=== PATIENT | female | born 1980 | race Caucasian/White ===

== ENCOUNTER 2019-04-07 08:42 | Emergency (ER) | payer OTHER ==
[2019-04-07 09:06] VITALS: BP 181/112; PULSE 73
[2019-04-07] MEDS ORDERED: Lidocaine 1% 10 ML MDV INJECT ONE (09:27)
--- NOTE | 2019-04-07 09:56 | EDM.PDOC ---
ED HPI GENERAL MEDICAL PROBLEM - General Chief Complaint: Laceration Stated Complaint: R PINKY FINGER LAC Time Seen by Provider: 04/07/19 09:30 Source of Information: Reports: Patient - History of Present Illness INITIAL COMMENTS - FREE TEXT/NARRATIVE: 38 year old female cut R small finger with a knife cutting a box at work. UTD with tetanus. No weakness of difficulty with finger flexion. Left Finger-Little Pain Score (Numeric/FACES): 3 - Related Data Allergies Allergy/AdvReac Type Severity Reaction Status Date / Time allopurinol Allergy Fever Verified 04/07/19 09:02 Home Meds: Home Meds . 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: fatty tissue to left breast Psychiatric History: Reports: Anxiety Endocrine/Metabolic History: Reports: Hypothyroidism - Past Surgical History GI Surgical History: Reports: Cholecystectomy Social & Family History - Tobacco Use Smoking Status *Q: Never Smoker - Caffeine Use Caffeine Use: Reports: Energy Drinks, Soda - Recreational Drug Use Recreational Drug Use: No ED ROS GENERAL - Review of Systems Review Of Systems: See Below Constitutional: Reports: No Symptoms HEENT: Reports: No Symptoms Respiratory: Reports: No Symptoms Cardiovascular: Reports: No Symptoms Musculoskeletal: Reports: Other (finger lac R small finger) Neurological: Denies: Numbness, Tingling, Weakness ED EXAM, SKIN/RASH Exam: See Below General Appearance: Alert, No Apparent Distress Respiratory/Chest: No Respiratory Distress Extremities: Other (1.5 cm lac volar aspect ) Neurological: No Motor/Sensory Deficits Skin: Warm, Dry, Normal Color ED SKIN PROCEDURES - Laceration/Wound Repair Right Anterior Digit - 5th (Baby) Appearance: Linear Distal NVT: Neuro & Vascular Intact Local Anesthesia - Lidocaine (Xylocaine): 1% Plain Skin Prep: Saline Suture Size: 3-0 # of Sutures: 5 Suture Type: Nylon Course - Vital Signs Last Recorded V/S: Last Vital Signs Temp 97.4 F 04/07/19 09:03 Pulse 73 04/07/19 09:03 Resp 18 04/07/19 09:03 BP 181/112 H 04/07/19 09:03 Pulse Ox 98 04/07/19 09:03 - Orders/Labs/Meds Meds: Medications Discontinued Medications Generic Name Dose Route Start Last Admin Trade Name Drake PRN Reason Stop Dose Admin Lidocaine HCl 10 ml 04/07/19 09:27 Xylocaine 1% INJECT 04/07/19 09:28 ONETIME ONE Departure - Departure Time of Disposition: 09:56 Disposition: Home, Self-Care 01 Condition: Fair Clinical Impression: Finger laceration Qualifiers: Encounter type: initial encounter Finger: little finger Damage to nail status: without damage Foreign body presence: without foreign body Laterality: right Qualified Code(s): S61.216A - Laceration without foreign body of right little finger without damage to nail, initial encounter - Discharge Information Referrals: PCP,None [Primary Care Provider] - Additional Instructions: laceration care instr. Stitches out in about 10 days. Call our [facility] medical clinic at [phone] for appointment to have that done.
== END 2019-04-07 10:10 | disposition home or self-care (01) ==
LOC: JD.ED 08:42
DX: S61.216A Laceration without foreign body of right little finger without damage to nail, initial encounter (principal); Z88.8 Allergy status to other drugs, medicaments and biological substances; W26.0XXA Contact with knife, initial encounter; Y99.0 Civilian activity done for income or pay
CPT/HCPCS: 12001; 99282; J2001

== ENCOUNTER 2019-05-12 08:06 | Emergency (ER) | payer OTHER ==
[2019-05-12 08:18] VITALS: PULSE 68
[2019-05-12] MEDS ORDERED: LORazepam 0.5 MG Tab PO ONE (08:30)
--- NOTE | 2019-05-12 09:26 | EDM.PDOCBH ---
<Laura Preston - Last Filed: 05/12/19 09:33> ED HPI GENERAL MEDICAL PROBLEM - General Chief Complaint: Behavioral/Psych Stated Complaint: RACING HEART RATE AND CHEST TIGHTNESS Time Seen by Provider: 05/12/19 08:16 Source of Information: Reports: Patient History Limitations: Reports: No Limitations - History of Present Illness INITIAL COMMENTS - FREE TEXT/NARRATIVE: 38 year old female presents to the ED with complaints of palpitations for the past 3 days. Pt reports that these come on intermittently, more frequently in her sleep and wakes her up. She reports a history of palpitations and states that this happens when she does not take her thyroid mediation. She admits that she has not taken her thyroid medication in over two years as she has not had health insurance. Pt also admits to increased anxiety. She states that she is working two jobs and has been for quite some time and is just exhausted. Pt is tearful over how exhausted she is. She states that she has had a headache for the past 7 days, and that she has not been able to make it go away. 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 Denies: Shortness of Breath, Cough Cardiovascular: Reports: Palpitations. Denies: Chest Pain, Blood Pressure Problem, Dyspnea on Exertion, Lightheadedness, Syncope Endocrine: Reports: Fatigue GI/Abdominal: Reports: No Symptoms. Denies: Abdominal Pain, Constipation, Diarrhea : Reports: No Symptoms Musculoskeletal: Reports: No Symptoms Skin: Reports: No Symptoms Neurological: Reports: Headache. Denies: Dizziness, Numbness, Syncope Psychiatric: Reports: Anxiety Hematologic/Lymphatic: Reports: No Symptoms Immunologic: Reports: No Symptoms ED EXAM, BEHAVIORAL HEALTH - Physical Exam Exam: See Below Exam Limited By: No Limitations General Appearance: Alert, WD/WN, Anxious, Other (tearful) Eye Exam: Bilateral Eye: PERRL Ears: Normal External Exam, Hearing Grossly Normal Nose: Normal Inspection Throat/Mouth: Normal Inspection, Normal Lips, Normal Voice, No Airway Compromise Head: Atraumatic, Normocephalic Neck: Normal Inspection, Supple, Non-Tender Respiratory/Chest: No Respiratory Distress, Lungs Clear, Chest Non-Tender Cardiovascular: Normal Peripheral Pulses, Regular Rate, Rhythm, No Edema, No Murmur GI/Abdominal: Normal Bowel Sounds, Soft, Non-Tender (Female) Exam: Deferred Rectal (Female) Exam: Deferred Back Exam: Normal Inspection, Full Range of Motion Extremities: Normal Inspection, Normal Range of Motion, No Pedal Edema Neurological: Alert, Normal Cognition, No Motor/Sensory Deficits, Oriented x 3 Psychiatric: Alert, Normal Cognition, Oriented, Tearful Skin Exam: Warm, Dry, Intact, Normal color, No rash COURSE, BEHAVIORAL HEALTH COMP - Course Vital Signs: Last Vital Signs Temp 97.4 F 05/12/19 08:15 Pulse 68 05/12/19 08:15 Resp 16 05/12/19 08:15 BP Pulse Ox 100 05/12/19 08:15 Orders, Labs, Meds: Active Orders 24 hr Category Date Time Status EKG 12 Lead [EKG Documentation Completion] [RC] STAT Care 05/12/19 08:30 Active Laboratory Tests 05/12/19 05/12/19 Range/Units 08:58 08:58 WBC 7.96 (3.98-10.04) K/mm3 RBC 4.82 (3.98-5.22) M/mm3 Hgb 12.6 (11.2-15.7) gm/dl Hct 38.6 (34.1-44.9) % MCV 80.1 (79.4-94.8) fl MCH 26.1 (25.6-32.2) pg MCHC 32.6 (32.2-35.5) g/dl RDW Std Deviation 48.4 H (36.4-46.3) fL Plt Count 417 H D (182-369) K/mm3 MPV 8.6 L (9.4-12.3) fl Neut % (Auto) 58.3 (34.0-71.1) % Lymph % (Auto) 26.8 (19.3-51.7) % [place] % (Auto) 8.8 (4.7-12.5) % Eos % (Auto) 4.9 (0.7-5.8) Baso % (Auto) 0.9 (0.1-1.2) % Neut # (Auto) 4.65 (1.56-6.13) K/mm3 Lymph # (Auto) 2.13 (1.18-3.74) K/mm3 [place] # (Auto) 0.70 H (0.24-0.36) K/mm3 Eos # (Auto) 0.39 H (0.04-0.36) K/mm3 Baso # (Auto) 0.07 (0.01-0.08) K/mm3 Sodium 142 (136-145) mEq/L Potassium 3.8 (3.5-5.1) mEq/L Chloride 107 (98-107) mEq/L Carbon Dioxide 28 (21-32) mEq/L Anion Gap 10.8 (5-15) BUN 13 (7-18) mg/dL Creatinine 1.0 (0.55-1.02) mg/dL Est Cr Clr Drug Dosing 64.58 mL/min Estimated GFR (MDRD) > 60 (>60) mL/min BUN/Creatinine Ratio 13.0 L (14-18) Glucose 95 (74-106) mg/dL Calcium 8.7 (8.5-10.1) mg/dL Total Bilirubin 0.4 (0.2-1.0) mg/dL AST 13 L (15-37) U/L ALT 24 (14-59) U/L Alkaline Phosphatase 63 (46-116) U/L Troponin I < 0.017 (0.00-0.056) ng/mL Total Protein 7.1 (6.4-8.2) g/dl Albumin 3.1 L (3.4-5.0) g/dl Globulin 4.0 gm/dL Albumin/Globulin Ratio 0.8 L (1-2) TSH 3rd Generation 130.846 H (0.358-3.74) uIU/mL Medications Discontinued Medications Generic Name Dose Route Start Last Admin Trade Name Freq PRN Reason Stop Dose Admin Lorazepam 0.5 mg 05/12/19 08:30 05/12/19 09:12 Ativan PO 05/12/19 08:31 0.5 mg ONETIME ONE Administration Departure - Departure Disposition: Home, Self-Care 01 Clinical Impression: Palpitations, Hypothyroidism - Discharge Information Prescriptions: Levothyroxine 200 mcg PO ACBREAKFAST #30 tab Levothyroxine 25 mcg PO ACBREAKFAST #30 tab LORazepam [Ativan] 0.5 mg PO BEDTIME PRN #10 tablet PRN Reason: Anxiety Instructions: Hypothyroidism Referrals: Minda Tran PA-C [Primary Care Provider] - Forms: ED Department Discharge, ED Return to Work/School Form Additional Instructions: Levothyroxine 225 g daily. Drink plenty of water to maintain hydration. Ativan 0.5 mg in the evening if needed for palpitations, anxiety or difficulty sleeping. Follow-up clinic in about 2 weeks as planned. Return to ED as needed. <Juarez Mascorro - Last Filed: 05/12/19 14:53> COURSE, BEHAVIORAL HEALTH COMP - Course Re-Assessment/Re-Exam: Initial hx and exam was done by RAMA Moore student. I agree with her hx and exam as documented. I have also interviewed and examined patient. Her TSHdid come back very high. As noted patient states she has been off of thyroid medication for close to 2 yrs, will start her back on dosage previously prescribed. Discharge instr. as documented. Departure - Departure Time of Disposition: 11:18 Condition: Fair
== END 2019-05-12 11:47 | disposition home or self-care (01) ==
LOC: JD.ED 08:06
DX: R00.2 Palpitations (principal); E03.9 Hypothyroidism, unspecified; F41.9 Anxiety disorder, unspecified; Z79.890 Hormone replacement therapy; Z88.8 Allergy status to other drugs, medicaments and biological substances; Z79.899 Other long term (current) drug therapy
CPT/HCPCS: 36415; 80053; 84443; 84484; 85025; 93005; 99285; A9270

== ENCOUNTER 2023-02-01 13:21 | Emergency (ER) | payer SELFPAY ==
[2023-02-01] MEDS ORDERED: Aspirin 81 MG Tab.Chew PO ONE (13:46)
[2023-02-01] MEDS ORDERED: Sodium Chloride 0.9% 10 ML Syringe FLUSH PRN (13:46)
[2023-02-01] MEDS ORDERED: Aluminum Hydroxide/Magnesium Hydroxide/Simethicone Susp 30 ML Cup PO ONE (14:28)
[2023-02-01 14:30] LABS: BASOPHILS ABSOLUTE AUTO 0.06 K/mm3 (0.01-0.08); BASOPHILS PERCENT AUTO 0.4 % (0.1-1.2); EOSINOPHILS ABSOLUTE AUTO 0.53 K/mm3 (0.04-0.36); HEMATOCRIT 39.9 % (34.1-44.9); HEMOGLOBIN 13.1 gm/dl (11.2-15.7); IMMATURE GRAN ABSOLUTE AUTO 0.03 K/mm3 (0.00-0.10); IMMATURE GRAN PERCENT AUTO 0.2 % (<=1.0); LYMPHOCYTES ABSOLUTE AUTO 2.21 K/mm3 (1.18-3.74); LYMPHOCYTES PERCENT AUTO 16.6 % (19.3-51.7); MEAN CORPUSCULAR HEMOGLOBIN 27.5 pg (25.6-32.2); MEAN CORPUSCULAR HGB CONC 32.8 g/dl (32.2-35.5); MEAN CORPUSCULAR VOLUME 83.8 fl (79.4-94.8); MEAN PLATELET VOLUME 8.6 fl (9.4-12.3); MONOCYTES ABSOLUTE AUTO 1.04 K/mm3 (0.24-0.36); MONOCYTES PERCENT AUTO 7.8 % (4.7-12.5); NEUTROPHILS ABSOLUTE AUTO 9.47 K/mm3 (1.56-6.13); PLATELET COUNT,PLT 408 K/mm3 (182-369); RED BLOOD CELL COUNT 4.76 M/mm3 (3.98-5.22); WHITE BLOOD CELL COUNT,WBC 13.34 K/mm3 (3.98-10.04)
[2023-02-01 15:03] LABS: A/G RATIO 0.7 (1-2); ALANINE AMINOTRANSFERASE,ALT 35 U/L (14-59); ALBUMIN 3.2 g/dl (3.4-5.0); ALKALINE PHOSPHATASE 71 U/L (46-116); ANION GAP 13.3 (5-15); ASPARTATE AMNIOTRANSFERASE,AST 19 U/L (15-37); BILIRUBIN TOTAL 0.4 mg/dL (0.2-1.0); BLOOD UREA NITROGEN,BUN 10 mg/dL (7-18); C-REACTIVE PROTEIN 4.1 mg/dL (<1.0); CALCIUM 9.3 mg/dL (8.5-10.1); CARBON DIOXIDE,CO2 26 mEq/L (21-32); CHLORIDE,CL 102 mEq/L (98-107); ESTIMATED GFR 71 mL/min (>60); GLUCOSE RANDOM 95 mg/dL (70-99); POTASSIUM,K 3.3 mEq/L (3.5-5.1); PROTEIN TOTAL,TP 7.7 g/dl (6.4-8.2); SODIUM,NA 138 mEq/L (136-145)
[2023-02-01 15:08] LABS: TROPONIN I HIGH SENSITIVITY < 4 pg/mL (<=51)
[2023-02-01 18:20] VITALS: BP 126/78; PULSE 68
== END 2023-02-01 16:45 | disposition home or self-care (01) ==
LOC: JD.ED 13:21
DX: K21.9 Gastro-esophageal reflux disease without esophagitis (principal); E03.9 Hypothyroidism, unspecified; Z88.8 Allergy status to other drugs, medicaments and biological substances; Z79.899 Other long term (current) drug therapy
CPT/HCPCS: 36415; 71046; 80053; 84443; 84484; 85025; 85379; 86140; 93005; 99285; A9270; 93010; 99284